=== PATIENT | female | born 1985 | race Caucasian/White ===

== ENCOUNTER 2023-03-10 22:53 | Outpatient (CLI) | payer MEDICAID | END 2023-03-10 22:54 | disposition critical access hospital (66) | LOC: EMS 22:53 | DX: R45.1 Restlessness and agitation (principal); R41.82 Altered mental status, unspecified; G47.9 Sleep disorder, unspecified | CPT/HCPCS: A0425; A0429; A0999 ==

== ENCOUNTER 2023-03-10 23:00 | Emergency (ER) | payer MEDICAID ==
--- NOTE | 2023-03-10 23:00 | ED Physician Documentation ---
PD HPI MHE - Stated complaint Stated Complaint: MHE - History obtained from History obtained from: Patient, EMS - Additional information Additional information: Betsy who called 911. Patient was exhibiting bizarre behavior when medics arrived. The patient tells me that she has been out of her medications for approximately 4 to 5 days. She says the medications she was taking were Prozac, Seroquel, Tegretol. She says she has a history of schizophrenia. She denies SI. HPI is limited to a mild degree due to patient's exhibiting tangential thinking, rambling speech. However, when asked questions, she does provide quick and ap propriate answers. She does not know the doses of her medications. Review of Systems Psychiatric: reports: Anxiety, Insomnia. denies: Depressed, Suicidal, Homicidal PD PAST MEDICAL HISTORY - Past Medical History Past Medical History: Yes Psych: Schizophrenia - Present Medications Home Medications: Ambulatory Orders Medication Instructions Recorded Confirmed FLUoxetine [PROzac] 40 mg PO DAILY #120 cap 03/11/23 QUEtiapine [SEROquel] 200 mg PO QPM #60 tablet 03/11/23 carBAMazepine [TEGretol] 200 mg PO BID #60 tablet 03/11/23 - Allergies Allergies/Adverse Reactions: Allergies Allergy/AdvReac Type Severity Reaction Status Date / Time haloperidol [From Haldol] Allergy Respiratory Verified 03/10/23 23:22 lamotrigine Allergy Rash Verified 03/10/23 23:22 trazodone Allergy Respiratory Verified 03/10/23 23:21 PD ED PE NORMAL - Vitals Vital signs reviewed: Yes - General General: Alert and oriented X 3, Well developed/nourished, Other (Cooperative, follows commands; constantly speaking with tangential thoughts, rapidly jumping from one thought to the next) - HEENT HEENT: PERRL, EOMI, Moist mucous membranes - Cardiac Cardiac: RRR, No murmur - Respiratory Respiratory: No respiratory distress, Clear bilaterally - Abdomen Abdomen: Soft, Non tender Results - Vitals Vitals: Vital Signs - 24 hr 03/10/23 03/11/23 23:00 06:07 Temperature 36.3 C L 36.6 C Heart Rate 100 89 Respiratory 18 16 Rate Blood Pressure 135/89 H 120/67 O2 Saturation 97 100 Oxygen O2 Source Room air - Labs Labs: Laboratory Tests 03/10/23 03/10/2323 23:36 23:36 00:03 WBC 7.7 RBC 4.30 Hgb 11.9 L Hct 37.9 MCV 88.1 MCH 27.7 MCHC 31.4 L RDW 14.0 Plt Count 352 MPV 8.9 Neut # (Auto) 4.2 Lymph # (Auto) 2.5 [place] # (Auto) 0.9 Eos # (Auto) 0.1 Baso # (Auto) 0.1 Absolute Nucleated RBC 0.00 Nucleated RBC % 0.0 Sodium 139 Potassium 3.5 Chloride 102 Carbon Dioxide 30 Anion Gap 7.0 BUN 20 Creatinine 1.0 Estimated GFR (MDRD) 62 L Glucose 68 L Calcium 9.6 Magnesium 2.0 Total Bilirubin 0.4 AST 20 ALT 14 Alkaline Phosphatase 65 Total Creatine Kinase 257 H Total Protein 7.5 Albumin 4.6 Globulin 2.9 Albumin/Globulin Ratio 1.6 Lipase 10 L TSH 3.55 Urine Color YELLOW Urine Clarity CLEAR Urine pH 6.0 Ur Specific [place] >=1.030 H Urine Protein 30 H Urine Glucose (UA) NEGATIVE Urine Ketones TRACE Urine Occult Blood NEGATIVE Urine Nitrite NEGATIVE Urine Bilirubin SMALL H Urine Urobilinogen 0.2 (NORMAL) Ur Leukocyte Esterase NEGATIVE Urine RBC 0-5 Urine WBC 0-3 Ur Squamous Epith Cells MANY Squamous H Urine Bacteria Rare Ur Microscopic Review INDICATED Urine Culture Comments NOT INDICATED Urine HCG, Qual Salicylates < 1.5 Urine Opiates Screen NEGATIVE Ur Oxycodone Screen NEGATIVE Urine Methadone Screen NEGATIVE Ur Propoxyphene Screen NEGATIVE Acetaminophen < 0 L Ur Barbiturates Screen NEGATIVE Ur Tricyclics Screen NEGATIVE Ur Phencyclidine Scrn NEGATIVE Ur Amphetamine Screen POSITIVE H U Methamphetamines Scrn POSITIVE H U Benzodiazepines Scrn POSITIVE H Urine Cocaine Screen NEGATIVE U Cannabinoids Screen POSITIVE H Ethyl Alcohol < 10.0 SARS-CoV-2 (PCR) 03/11/23 03/11/23 00:03 00:10 WBC RBC Hgb Hct MCV MCH MCHC RDW Plt Count MPV Neut # (Auto) Lymph # (Auto) [place] # (Auto) Eos # (Auto) Baso # (Auto) Absolute Nucleated RBC Nucleated RBC % Sodium Potassium Chloride Carbon Dioxide Anion Gap BUN Creatinine Estimated GFR (MDRD) Glucose Calcium Magnesium Total Bilirubin AST ALT Alkaline Phosphatase Total Creatine Kinase Total Protein Albumin Globulin Albumin/Globulin Ratio Lipase TSH Urine Color Urine Clarity Urine pH Ur Specific [place] Urine Protein Urine Glucose (UA) Urine Ketones Urine Occult Blood Urine Nitrite Urine Bilirubin Urine Urobilinogen Ur Leukocyte Esterase Urine RBC Urine WBC Ur Squamous Epith Cells Urine Bacteria Ur Microscopic Review Urine Culture Comments Urine HCG, Qual NEGATIVE Salicylates Urine Opiates Screen Ur Oxycodone Screen Urine Methadone Screen Ur Propoxyphene Screen Acetaminophen Ur Barbiturates Screen Ur Tricyclics Screen Ur Phencyclidine Scrn Ur Amphetamine Screen U Methamphetamines Scrn U Benzodiazepines Scrn Urine Cocaine Screen U Cannabinoids Screen Ethyl Alcohol SARS-CoV-2 (PCR) NOT DETECTED PD Medical Decision Making - ED course Complexity details: reviewed results, re-evaluated patient, considered differential, d/w patient ED course: I asked the patient if she has ever had Zyprexa, and she answers that she has, even specifying "it was on a PRN basis". I asked if she had any adverse reactions/side effects from this medication, and she says she did not. She is requesting lorazepam 2 mg. I explained that I would give 1 mg lorazepam along with 5 mg of Zyprexa and we would monitor for adequate effect, consider redosing if needed. Unfortunately, there are no previous medical records on [facility] on this patient, and I do not see an [facility] form nor any outpatient prescription fills on my computer. She was subsequently given repeat doses of the lorazepam and zyprexa (for total of 2mg lorazepam, 10mg zyprexa) as well as 100mg PO seroquel. She subsequently fell asleep and was allowed to sleep for several hours before I reevaluated her at the end of my shift. On reevaluation, she is calm and speaking without tangential thinking, answers calmly and appropriately. She now recalls her doses of prozac, tegretol, and seroquel. I am providing her with a one-month supply of each of these medications. I emphasized to her the need to establish with a primary care provider for further prescriptions and ongoing medical / mental health care. Departure - Departure Disposition: 01 Home, Self Care Clinical Impression: Psychiatric symptoms Condition: Good Instructions: ED Manic Depression Prescriptions: FLUoxetine [PROzac] 40 mg PO DAILY #120 cap QUEtiapine [SEROquel] 200 mg PO QPM #60 tablet carBAMazepine [TEGretol] 200 mg PO BID #60 tablet Forms: PCP List
[2023-03-10] MEDS ORDERED: OLANZapine ODT 5 MG TABLET TL STA (23:23)
[2023-03-10] MEDS ORDERED: LORazepam 0.5 MG TABLET PO STA (23:23)
[2023-03-10 23:41] LABS: BASOPHILS # (AUTO) 0.1 10^3/uL (0.0-0.1); BASOPHILS % (AUTO) 0.8 %; EOSINOPHILS # (AUTO) 0.1 10^3/uL (0.0-0.7); HCT - HEMATOCRIT 37.9 % (37.0-47.0); HGB - HEMOGLOBIN 11.9 g/dL (12.0-16.0); LYMPHOCYTES # (AUTO) 2.5 10^3/uL (1.5-3.5); LYMPHOCYTES % (AUTO) 31.8 %; MEAN CORPUSCULAR HEMOGLOBIN 27.7 pg (27.0-31.0); MEAN CORPUSCULAR HGB CONC 31.4 g/dL (32.0-36.0); MEAN CORPUSCULAR VOLUME 88.1 fL (81.0-99.0); MEAN PLATELET VOLUME 8.9 fL (7.9-10.8); MONOCYTES # (AUTO) 0.9 10^3/uL (0.0-1.0); MONOCYTES % (AUTO) 11.2 %; NEUTROPHILS # (AUTO) 4.2 10^3/uL (1.5-6.6); NEUTROPHILS % (AUTO) 54.7 %; PLT - PLATELET COUNT 352 10^3/uL (130-450); WHITE BLOOD COUNT 7.7 x10^3/uL (4.8-10.8)
[2023-03-10 23:58] LABS: ALBUMIN 4.6 g/dL (3.2-5.5); ALBUMIN/GLOBULIN RATIO 1.6 (1.0-2.2); ALKALINE PHOSPHATASE 65 IU/L (42-121); ALT ALANINE AMINOTRANSFERASE 14 IU/L (10-60); AST ASPARTATE AMINOTRANSFERASE 20 IU/L (10-42); BILIRUBIN,TOTAL 0.4 mg/dL (0.2-1.0); BUN - BLOOD UREA NITROGEN 20 mg/dL (6-20); CALCIUM 9.6 mg/dL (8.5-10.3); CARBON DIOXIDE - CO2 30 mmol/L (21-32); CHLORIDE 102 mmol/L (101-111); CK- CREATINE KINASE 257 IU/L (30-223); ETOH - ETHANOL < 10.0 mg/dL; GFR - MDRD 62 (>89); GLUCOSE 68 mg/dL (74-104); LIPASE 10 U/L (11-82); POTASSIUM 3.5 mmol/L (3.5-4.5); SODIUM 139 mmol/L (135-145); TOTAL PROTEIN 7.5 g/dL (6.4-8.9)
[2023-03-11 00:08] LABS: MUDS CUTOFF CONCENTRATIONS CUTOFF CONC BELOW:
[2023-03-11 00:10] LABS: THYROID STIMULATING HORMONE 3.55 uIU/mL (0.34-5.60)
[2023-03-11 00:17] LABS: GLUCOSE, URINE (UA) NEGATIVE (NEGATIVE); KETONES,URINE (UA) TRACE mg/dL (NEGATIVE); LEUKOCYTE ESTERASE, URINE NEGATIVE (NEGATIVE); NITRITE,URINE NEGATIVE (NEGATIVE); OCCULT BLOOD,URINE NEGATIVE (NEGATIVE); PROTEIN,URINE 30 mg/dL (NEGATIVE); UROBILINOGEN,URINE 0.2 (NORMAL) E.U./dL (NORMAL)
[2023-03-11 00:21] LABS: ACETAMINOPHEN < 0 ug/mL (10-30); SALICYLATE < 1.5 mg/dL
[2023-03-11 00:32] LABS: CLARITY,URINE CLEAR (CLEAR)
[2023-03-11] MEDS ORDERED: OLANZapine ODT 5 MG TABLET TL STA (00:34)
[2023-03-11] MEDS ORDERED: LORazepam 0.5 MG TABLET PO STA (00:34)
[2023-03-11] MEDS ORDERED: QUEtiapine 100 MG TABLET PO STA (00:38)
[2023-03-11 00:48] LABS: BILIRUBIN,URINE SMALL (NEGATIVE); ICTOTEST,URINE POSITIVE
[2023-03-11 00:49] LABS: RBC,URINE 0-5 /HPF (0-5); SQUAMOUS EPITHELIAL CELL,UR MANY Squamous (<= Few); WBC,URINE 0-3 /HPF (0-5)
[2023-03-11 00:50] LABS: AMPHETAMINE SCREEN,URINE POSITIVE (NEGATIVE); BARBITURATE SCREEN,UR NEGATIVE (NEGATIVE); BENZODIAZEPINES SCREEN, URINE POSITIVE (NEGATIVE); COCAINE SCREEN URINE NEGATIVE (NEGATIVE); METHADONE SCREEN, URINE NEGATIVE (NEGATIVE); METHAMPHETAMINES SCREEN, URINE POSITIVE (NEGATIVE); OPIATE SCREEN, URINE NEGATIVE (NEGATIVE); OXYCODONE SCREEN, URINE NEGATIVE (NEGATIVE); PROPOXYPHENE SCREEN, URINE NEGATIVE (NEGATIVE); THC CANNABINOID SCREEN, URINE POSITIVE (NEGATIVE); TRICYCLIC ANTIDEPRESSANT,URINE NEGATIVE (NEGATIVE)
[2023-03-11 01:13] LABS: BACTERIA,URINE Rare /HPF (None Seen)
[2023-03-11 02:55] LABS: HCG UR QUAL NEGATIVE
[2023-03-11 06:10] VITALS: O2SAT 100
[2023-03-11] MEDS ORDERED: BACITRACIN ZINC OINT 1 PACKET TOP STA (09:01)
--- NOTE | 2023-03-11 09:02 | ED Physician Documentation ---
ED Addendum - Addendum Addendum: 03/11/23 09:[address] Grimes overnight for mental health reasons and was pending discharge. At discharge patient asked if a wound on her abdomen could be evaluated. I evaluated the wound and she has a 1 cm area of erythema with no surrounding fluctuance or induration. Appears to be very localized superficial wound and would recommend bacitracin and general wound care at this time.
[2023-03-11 10:01] VITALS: BP 120/78
== END 2023-03-11 09:10 | disposition home or self-care (01) ==
LOC: ED 23:00
DX: F99 Mental disorder, not otherwise specified (principal); S30.92XA Unspecified superficial injury of abdominal wall, initial encounter; X58.XXXA Exposure to other specified factors, initial encounter; F20.9 Schizophrenia, unspecified; Z76.0 Encounter for issue of repeat prescription; Z20.822 Contact with and (suspected) exposure to COVID-19; Z79.899 Other long term (current) drug therapy
CPT/HCPCS: 36415; 80053; 80306; 80307; 80320; 80329; 81001; 81025; 82550; 83690; 83735; 84443; 85025; 87635; 99283; 99284; A9270; 81003; 87086

== ENCOUNTER 2023-03-24 04:59 | Outpatient (CLI) | payer MEDICARE, MEDICAID | END 2023-03-24 23:59 | disposition critical access hospital (66) | LOC: EMS 04:59 | DX: T43.592A Poisoning by other antipsychotics and neuroleptics, intentional self-harm, initial encounter (principal); T42.1X2A Poisoning by iminostilbenes, intentional self-harm, initial encounter | CPT/HCPCS: A0425; A0429; A0999 ==